=== PATIENT | male | born 1990 | race Hispanic/Latino ===

== ENCOUNTER 2019-05-20 14:12 | Emergency (ER) | payer OTHER, SELFPAY ==
[2019-05-20 14:21] VITALS: BMI 30.5
[2019-05-20 14:26] VITALS: BP 142/93; PULSE 92; RESP 17; TEMP 36.5; O2SAT 100
--- NOTE | 2019-05-20 14:49 | PC.NURSE ---
pt reports, while working developed tightness substernal non radiating discomfort, that I dont have enough air denies other associated sxs.
--- NOTE | 2019-05-20 14:53 | DI.RAD.S_ITS ---
PROCEDURE: XR CHEST 1V INDICATIONS: shortness of breath TECHNIQUE: One view of the chest was acquired. COMPARISON: None. FINDINGS: Surgical changes and devices: None. Lungs and pleura: Lungs are clear. No pleural effusions or pneumothorax. Mediastinum: Mediastinal contours appear normal. Heart size is normal. Bones and chest wall: No suspicious bony lesions. Overlying soft tissues appear unremarkable. IMPRESSION: Mildly reduced inspiratory via, source of shortness of breath is not seen. Dictated by: Bebeto Mccartney M.D. on 05/20/2019 at 15:25 Approved by: Bebeto Mccartney M.D. on 05/20/2019 at 15:25
--- NOTE | 2019-05-20 14:55 | ED.SOB ---
HPI - SOB/Dyspnea <DM Dixon - Last Filed: 05/20/19 20:57> General Chief Complaint: Shortness of Breath/Dyspnea Stated Complaint: SOB Time Seen by Provider: 05/20/19 14:22 Source: patient Mode of arrival: Ambulatory Limitations: no limitations History of Present Illness HPI Narrative: 28yo male presents to the ED complaining of shortness of breath for the past week. He states he notices at the most when he is working. He states he had smoked for about a year when he was 16 but denies smoking since then. He denies any history of asthma but states he had a use an inhaler 1 point when he had bronchitis. He reports a mostly dry cough with occasional mucus production. No rhinorrhea, ear pain, chest pain, abdominal pain, nausea, vomiting, diarrhea as, fevers, trauma to the chest, or other concerns. He denies any recent long trips, states he flew from [place] about 6 months ago. He denies any calf pain, history of DVTs, cancer, or family history of blood clots. Related Data Previous Rx's Medication Instructions Recorded albuterol sulfate 2 puff INHALATION Q4-6H PRN #8 gram 05/20/19 Allergies Allergy/AdvReac Type Severity Reaction Status Date / Time No Known Drug Allergies Allergy Verified 05/20/19 14:21 Review of Systems <DM Dixon - Last Filed: 05/20/19 20:57> Review of Systems Narrative: REVIEW OF SYSTEMS: GENERAL: Denies fevers. HENT: No head trauma or hearing loss. EYES: No loss of vision, double vision, eye pain, irritation or discharge. CARDIOVASCULAR: No chest pain or syncope. RESPIRATORY: Reports shortness of breath, see HPI. GASTROINTESTINAL: No nausea, vomiting, diarrhea, or constipation. MUSCULOSKELETAL: No weakness or injury. INTEGUMENTARY: No rash, lesions, or pruritus. NEURO: No memory loss, or confusion. Patient History <DM Dixon - Last Filed: 05/20/19 20:57> Medical History No significant medical problems (Acute) Social History Smoking Status: Never smoker alcohol intake frequency: other Substance Use Type: does not use Exam <DM Dixon - Last Filed: 05/20/19 20:57> Initial Vital Signs Initial Vital Signs: Vital Signs Temperature 97.7 F 05/20/19 14:26 Pulse Rate 92 H 05/20/19 14:26 Respiratory Rate 17 05/20/19 14:26 Blood Pressure 142/93 H 05/20/19 14:26 Pulse Oximetry 100 05/20/19 14:26 PHYSICAL EXAMINATION: GENERAL: Well groomed, alert, and cooperative. Answers questions promptly and appropriately. Vital signs noted. HENT: Normocephalic, atraumatic. Ear canals patent. TMs intact without mucus or erythema. Oropharynx without erythema. Tonsils are not present. EYES: Conjunctiva pink, sclera white, no periorbital swelling. No discharge. CHEST: Normal to inspection and without deformities. CARDIOVASCULAR: S1 and S2 sounds normal. Regular rate and rhythm, no murmurs, clicks, or bruits. RESPIRATORY: Normal respiratory rate, trachea midline, airway patent. No stridor, nasal flaring or accessory muscle use. Able to speak in full sentences. Lungs are clear in all pradhan without wheeze, rhonchi, or crackles. MUSCULOSKELETAL: Normal gait and coordination. Equal tone and mass bilaterally. EXTREMITIES: Moves all extremities. SKIN: Warm, dry, soft, appropriate color for ethnicity. No lesions, rashes, or wounds. NEURO: Alert and Oriented X 3. Good coordination. No ataxia or cognitive issues. PSYCH: Appropriate affect and mood. <Rita Almodovar DO - Last Filed: 05/22/19 07:26> Initial Vital Signs Initial Vital Signs: Vital Signs Temperature 97.7 F 05/20/19 14:26 Pulse Rate 92 H 05/20/19 14:26 Respiratory Rate 17 05/20/19 14:26 Blood Pressure 142/93 H 05/20/19 14:26 Pulse Oximetry 100 05/20/19 14:26 Course <DM Dixon - Last Filed: 05/20/19 20:57> Course Course Narrative: Patient was given a DuoNeb administration in the emergency department, he reports complete resolution of symptoms after DuoNeb. Orders Ordered: Discontinued Medications Albuterol/Ipratropium (Duoneb) 3 ml INH NOW ONE Stop: 05/20/19 14:54 Last Admin: 05/20/19 17:28 Dose: 3 ml Documented by: KECIA Consultations Consultation #1: Patient staffed with Dr. Almodovar. Vital Signs Vital signs: Vital Signs - 8 hr 05/20/19 14:26 05/20/19 15:30 05/20/19 16:00 Temperature 97.7 F Pulse Rate 92 H 82 80 Respiratory Rate 17 14 16 Blood Pressure Blood Pressure [Right Arm] 142/93 H 143/81 H 137/73 Pulse Oximetry 100 99 99 05/20/19 16:30 05/20/19 17:28 05/20/19 18:12 Temperature Pulse Rate 77 80 70 Respiratory Rate 16 16 16 Blood Pressure 124/80 Blood Pressure [Right Arm] 129/79 Pulse Oximetry 99 100 98 <Rita Almodovar DO - Last Filed: 05/22/19 07:26> Orders Ordered: Discontinued Medications Albuterol/Ipratropium (Duoneb) 3 ml INH NOW ONE Stop: 05/20/19 14:54 Last Admin: 05/20/19 17:28 Dose: 3 ml Documented by: KECIA Vital Signs Vital signs: Vital Signs - 8 hr 05/20/19 14:26 05/20/19 15:30 05/20/19 16:00 Temperature 97.7 F Pulse Rate 92 H 82 80 Respiratory Rate 17 14 16 Blood Pressure Blood Pressure [Right Arm] 142/93 H 143/81 H 137/73 Pulse Oximetry 100 99 99 05/20/19 16:30 05/20/19 17:28 05/20/19 18:12 Temperature Pulse Rate 77 80 70 Respiratory Rate 16 16 16 Blood Pressure 124/80 Blood Pressure [Right Arm] 129/79 Pulse Oximetry 99 100 98 MDM - SOB/Dyspnea <DM Dixon - Last Filed: 05/20/19 20:57> Medical Records Attestation: I reviewed the patient's medical records. Lab Data Attestation: I reviewed the patient's lab results. Result diagrams: 05/20/19 16:38 05/20/19 16:38 Labs: Lab Results 05/20/19 05/20/19 Range/Units 16:38 16:38 WBC 6.7 (4.5-11.0) X10^3/uL RBC 4.73 (4.5-5.9) X10^6/uL Hgb 13.8 (13.5-17.5) g/dL Hct 40.7 L (41-53) % MCV 86.0 (80-100) fL MCH 29.3 (26-34) PG MCHC 34.0 (30-36) % RDW 13.7 (11.6-14.8) % Plt Count 226 (150-400) X10^3/uL Neut % (Auto) 61.4 (50-75) % Lymph % (Auto) 25.6 (25-40) % Crenshaw % (Auto) 8.3 (3-14) % Eos % (Auto) 3.5 (2-4) % Baso % (Auto) 1.2 (0-2) % Neut # (Auto) 4100 (8299-8860) /uL Lymph # (Auto) 1700 (7830-2549) /uL Crenshaw # (Auto) 600 (0-900) /uL Eos # (Auto) 200 (0-450) /uL Baso # (Auto) 100 (0-100) /uL Sodium 140 (137-145) mmol/L Potassium 4.0 (3.4-5.1) mmol/L Chloride 103 (98-107) mmol/L Carbon Dioxide 30 (22-32) mmol/L BUN 20 (9-20) mg/dL Creatinine 1.20 (0.66-1.25) mg/dL Estimated GFR > 60.0 (>60) mL/min BUN/Creatinine Ratio 16.7 (6-22) Glucose 99 (70-100) mg/dL Calcium 9.4 (8.4-10.2) mg/dL Total Bilirubin 0.4 (0.2-1.3) mg/dL AST 27 (17-59) IU/L ALT 33 (<50) IU/L Alkaline Phosphatase 62 (38-126) U/L Total Creatine Kinase 120 (55-170) U/L CK-MB (CK-2) 0.46 (<2.37) ng/mL CK-MB (CK-2) Rel Index 0.4 L (1.5-5.0) % Troponin I < 0.012 (0.01-0.034) ng/mL Total Protein 7.6 (6.3-8.2) g/dL Albumin 4.4 (3.5-5.0) g/dL Globulin 3.2 (1.7-4.1) g/dL Albumin/Globulin Ratio 1.4 (1.0-2.8) Imaging Data Chest x-ray: Radiologist's impression: [address] [address] XRay Report Signed Patient: Nick Cortes AMR#: [id number] : 1990Acct:[id number] Age/Sex: 28 / MDate of Service: 05/20/19 Loc: ED Accession Number: [id number] Procedure: XR chest 1V Ordering Provider: Izzy Driver PROCEDURE: XR CHEST 1V INDICATIONS: shortness of breath TECHNIQUE: One view of the chest was acquired. COMPARISON: None. FINDINGS: Surgical changes and devices: None. Lungs and pleura: Lungs are clear. No pleural effusions or pneumothorax. Mediastinum: Mediastinal contours appear normal. Heart size is normal. Bones and chest wall: No suspicious bony lesions. Overlying soft tissues appear unremarkable. IMPRESSION: Mildly reduced inspiratory via, source of shortness of breath is not seen. Dictated by: Bebeto Mccartney M.D. on 05/20/2019 at 15:25 Approved by: Bebeto Mccartney M.D. on 05/20/2019 at 15:25 ECG Data Interpretation: Normal sinus rhythm, rate 91, DC interval 171, QTC 399. No ST elevation or ST depression. No T-wave abnormality. No ectopy. EKG was also viewed by Dr. Almodovar per protocol. [facility] Narrative Medical decision making narrative: 28-year-old male with a history of inhaler use for bronchitis presents emergency department for intermittent shortness of breath and chest tightness. Differential includes most likely reactive airway disease due to reversibility of symptoms with DuoNeb and lack of other symptoms such as productive cough or fevers. Less likely pneumonia due to negative chest x-ray, lack of fevers, and lack of tachypnea. Less likely cardiac etiology due to non remarkable EKG, negative troponins, and negative x-ray. Less likely PE as well as PE score is 0, patient does not have any risk factors or history of long trips recently, also albuterol reversal symptoms. Patient was given albuterol to take home. He was encouraged to follow up with primary care provider in the next few weeks for re-evaluation further discussion of management of his reactive airways. Return precautions given for new or worsening symptoms. <Rita Almodovar, DO - Last Filed: 05/22/19 07:26> Lab Data Labs: Lab Results 05/20/19 05/20/19 Range/Units 16:38 16:38 WBC 6.7 (4.5-11.0) X10^3/uL RBC 4.73 (4.5-5.9) X10^6/uL Hgb 13.8 (13.5-17.5) g/dL Hct 40.7 L (41-53) % MCV 86.0 (80-100) fL MCH 29.3 (26-34) PG MCHC 34.0 (30-36) % RDW 13.7 (11.6-14.8) % Plt Count 226 (150-400) X10^3/uL Neut % (Auto) 61.4 (50-75) % Lymph % (Auto) 25.6 (25-40) % Crenshaw % (Auto) 8.3 (3-14) % Eos % (Auto) 3.5 (2-4) % Baso % (Auto) 1.2 (0-2) % Neut # (Auto) 4100 (0946-9730) /uL Lymph # (Auto) 1700 (1238-9777) /uL Crenshaw # (Auto) 600 (0-900) /uL Eos # (Auto) 200 (0-450) /uL Baso # (Auto) 100 (0-100) /uL Sodium 140 (137-145) mmol/L Potassium 4.0 (3.4-5.1) mmol/L Chloride 103 (98-107) mmol/L Carbon Dioxide 30 (22-32) mmol/L BUN 20 (9-20) mg/dL Creatinine 1.20 (0.66-1.25) mg/dL Estimated GFR > 60.0 (>60) mL/min BUN/Creatinine Ratio 16.7 (6-22) Glucose 99 (70-100) mg/dL Calcium 9.4 (8.4-10.2) mg/dL Total Bilirubin 0.4 (0.2-1.3) mg/dL AST 27 (17-59) IU/L ALT 33 (<50) IU/L Alkaline Phosphatase 62 (38-126) U/L Total Creatine Kinase 120 (55-170) U/L CK-MB (CK-2) 0.46 (<2.37) ng/mL CK-MB (CK-2) Rel Index 0.4 L (1.5-5.0) % Troponin I < 0.012 (0.01-0.034) ng/mL Total Protein 7.6 (6.3-8.2) g/dL Albumin 4.4 (3.5-5.0) g/dL Globulin 3.2 (1.7-4.1) g/dL Albumin/Globulin Ratio 1.4 (1.0-2.8) ECG Data Attestation: I personally reviewed and interpreted this ECG as follows: Prior ECG tracings: not available for review Interpretation: Normal sinus rhythm rate 91 p.r. interval 171 QRS 96 you to see with [address] changes no T-wave inversions no priors to compare Discharge Plan Departure Patient Disposition: Home Clinical Impression: Mild intermittent reactive airway disease Discharge Date/Time: 05/20/19 17:45 Instructions: DI for Asthma -- Adult Activity Restrictions/Additional Instructions: Thank you for entrusting me with your care today. As discussed, your laboratory work, x-ray, and EKG, are non-remarkable for any concerning symptoms. I have given you an albuterol inhaler, please use this for your shortness of breath and or wheezing. Follow up with your primary care provider in the next few weeks for re-evaluation. Return emergency department for new or worsening symptoms such as worsening shortness of breath, chest pain, uncontrollable vomiting, or high fevers. Prescriptions: New albuterol sulfate 90 mcg/actuation HFA aerosol inhaler 2 puff INHALATION Q4-6H PRN (Reason: shortness of breath or wheezing) Qty: 8 RF: 0
[2019-05-20 15:30] VITALS: BP 143/81; PULSE 82; RESP 14; O2SAT 99
[2019-05-20 16:00] VITALS: BP 137/73; PULSE 80; RESP 16; O2SAT 99
[2019-05-20 16:30] VITALS: BP 129/79; PULSE 77; RESP 16; O2SAT 99
[2019-05-20 16:46] LABS: Add Manual Diff / Slide Review NO; Basophils Absolute Auto 100 /uL (0-100); Basophils Percent Auto 1.2 % (0-2); Eosinophils Absolute Auto 200 /uL (0-450); Eosinophils Percent Auto 3.5 % (2-4); Hematocrit 40.7 % (41-53); Hemoglobin 13.8 g/dL (13.5-17.5); Lymphocytes Absolute Auto 1700 /uL (1100-4500); Lymphocytes Percent Auto 25.6 % (25-40); Mean Corpuscular Hemoglobin 29.3 PG (26-34); Monocytes Absolute Auto 600 /uL (0-900); Monocytes Percent Auto 8.3 % (3-14); Neutrophils Absolute Auto 4100 /uL (1500-7000); Neutrophils Percent Auto 61.4 % (50-75); Platelet Count 226 X10^3/uL (150-400); Red Blood Cell Count 4.73 X10^6/uL (4.5-5.9); Red Cell Distribution Width 13.7 % (11.6-14.8); White Blood Cell Count 6.7 X10^3/uL (4.5-11.0)
[2019-05-20 16:58] LABS: Alanine Aminotransferase 33 IU/L (<50); Albumin 4.4 g/dL (3.5-5.0); Albumin Globulin Ratio 1.4 (1.0-2.8); Alkaline Phosphatase 62 U/L (38-126); Aspartate Aminotransferase 27 IU/L (17-59); BUN Creatinine Ratio 16.7 (6-22); Bilirubin Total 0.4 mg/dL (0.2-1.3); Blood Urea Nitrogen 20 mg/dL (9-20); Calcium 9.4 mg/dL (8.4-10.2); Carbon Dioxide 30 mmol/L (22-32); Chloride 103 mmol/L (98-107); Creatine Kinase 120 U/L (55-170); Estimated Glomerular Filt Rate > 60.0 mL/min (>60); Globulin 3.2 g/dL (1.7-4.1); Glucose 99 mg/dL (70-100); HEMOLYSIS < 15 (0-50); Sodium 140 mmol/L (137-145); Total Protein 7.6 g/dL (6.3-8.2)
[2019-05-20 17:09] LABS: Troponin I < 0.012 ng/mL (0.01-0.034)
[2019-05-20 17:13] LABS: CKMB % Relative Index 0.4 % (1.5-5.0); Creatine Kinase MB 0.46 ng/mL (<2.37)
[2019-05-20 17:28] VITALS: PULSE 80; RESP 16; O2SAT 100
[2019-05-20] MEDS: ALBUTEROL/IPRATROPIUM 3 ML AMPUL INH (17:28)
[2019-05-20 18:12] VITALS: BP 124/80; PULSE 70; RESP 16; O2SAT 98
== END 2019-05-20 17:45 | disposition home or self-care (01) ==
PROVIDERS: Emergency Provider Nurse Practitioner
DX: J45.20 Mild intermittent asthma, uncomplicated (principal)
CPT/HCPCS: 36415; 71045; 80053; 82550; 82553; 84484; 85025; 93005; 94640; 99283; 99285